=== PATIENT | female | born 2005 | race Caucasian/White ===

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

== ENCOUNTER 2024-01-11 10:33 | Emergency (ER) | payer OTHER, SELFPAY ==
--- NOTE | ~2024-01-11 | CT_ITS ---
EXAMINATION: CT SOFT TISSUE NECK WITH CONTRAST CLINICAL INFORMATION: Trismus. Dental infection. COMPARISON: None available. TECHNIQUE: Following the intravenous administration of 60 mL of Omnipaque 350 intravenous contrast, helical imaging was performed in the axial plane with generation of coronal and sagittal reformatted images. This CT examination was performed using dose optimization techniques as appropriate, variously including the following: *Automated exposure control *Adjustment of mA and/or kV according to patient size (this includes techniques or standardized protocols for targeted exams where dose is matched to indication/reason for exam; i.e. extremities or head) *Use of iterative reconstruction technique DLP: 551 mGy-cm FINDINGS: No abscess or significant inflammation evident. The posterior molars of the mandible and maxilla have been removed. There is air and fluid at the extraction site of these teeth bilaterally. There is no bone destruction. No periarticular abscess. No abnormal enhancement. No significant lymphadenopathy. The submandibular glands and parotid glands are normal. The nasopharynx pharynx and hypopharynx structures are unremarkable. The paranasal sinuses are normally aerated. The orbits and retrobulbar structures and the partially visualized intracranial structures are unremarkable. Lung apices and superior mediastinum are normal. CT/CT soft tissue neck w IV con IMPRESSION: Status post removal of the posterior molars of the mandible and maxilla bilaterally. Air and fluid at the extraction site of these teeth. No abscess or significant inflammation.
[2024-01-11 10:45] VITALS: BP 124/71; PULSE 67; RESP 16; TEMP 37.2; O2SAT 99; BMI 29.5
--- NOTE | 2024-01-11 10:51 | ECG_ITS ---
Test Reason : N/V Blood Pressure : / mmHG Vent. Rate : 057 BPM Atrial Rate : 057 BPM P-R Int : 146 ms QRS Dur : 088 ms QT Int : 410 ms P-R-T Axes : 047 036 044 degrees QTc Int : 399 ms Sinus bradycardia with marked sinus arrhythmia Otherwise normal ECG When compared with ECG of 27-MAR-2021 12:07, Previous ECG has undetermined rhythm, needs review T wave inversion no longer evident in Anterior leads Referred By: Generic ED Physician Electronically Signed By:Kwabena Bowen
[2024-01-11 11:21] LABS: MANUAL DIFF FLAG NO
[2024-01-11 11:29] LABS: Basophils Percent Auto 0.2 % (0-2); Hematocrit 36.4 % (37.0-47.0); Hemoglobin 11.8 g/dl (12.0-16.0); Imm Gran Abs Auto 0.11 X10*3/uL (0.00-0.03); Imm Gran Pct Auto 0.5 % (0.0-0.4); Lymphocytes Absolute Auto 1.5 X10*3/uL (1.2-4.9); Lymphocytes Percent Auto 7.2 % (20-40); Mean Corpuscular HGB Conc 32.4 g/dl (31.0-35.0); Mean Corpuscular Hemoglobin 24.1 pg (27.0-33.0); Mean Corpuscular Volume 74.3 fL (80.0-98.0); Mean Platelet Volume 9.8 fL (9.4-12.3); Monocytes Absolute Auto 0.6 X10*3/uL (0.1-1.2); Monocytes Percent Auto 2.9 % (2-11); Neutrophils Absolute Auto 18.1 x10*3/uL (2.0-8.3); Neutrophils Percent Auto 89.2 % (45-73); Platelet Count 402 X10*3/uL (160-400); Red Cell Distribution Width 17.1 % (11.0-16.0); White Blood Count 20.4 X10*3/uL (4.8-10.8)
[2024-01-11 11:41] LABS: Lactic Acid 1.2 mmol/L (0.5-2.0)
[2024-01-11 11:47] LABS: Alanine Aminotransferase 49 U/L (0-31); Albumin Level 4.6 g/dL (3.5-5.0); Alkaline Phosphatase 90 U/L (39-117); Anion Gap 18 (12-20); Aspartate Amino Transferase 18 U/L (5-31); Bilirubin Total 1.6 mg/dL (0.0-1.0); Blood Urea Nitrogen 7 mg/dL (9-16); Calcium 10.8 mg/dL (8.4-10.2); Carbon Dioxide 22 mmol/L (22-29); Chloride 101 mmol/L (96-108); Creatinine Clr Calc Pharmacy 115.6; Estimated Glomerular Filt Rate > 60; Glucose Random 116 mg/dL (60-115); Lipase 10 U/L (8-78); Potassium 4.5 mmol/L (3.3-5.1); Sodium 136 mmol/L (135-145); Total Protein 8.3 g/dL (6.5-8.0)
[2024-01-11 11:50] LABS: HCG Quantitative < 2 mIU/mL; Troponin-I High Sensitivity < 2.7 ng/L (<3.5-17.0)
--- NOTE | 2024-01-11 11:58 | ED.NAVMDI ---
HPI - Nausea/Vomiting/Diarrhea General Chief complaint: Nausea/Vomiting/Diarrhea Stated complaint: Vomiting Time Seen by Provider: 01/11/24 16:00 Source: patient, family (Mom), RN notes reviewed and old records reviewed Mode of arrival: ambulatory Limitations: no limitations History of Present Illness HPI Narrative: 18-year-old female with no significant past medical history presents to the ED today with mom for evaluation of dental pain, nausea and vomiting x1 week, worsening over the last few days. She admits to having all 4 wisdom teeth removed 1 week ago. She was placed on amoxicillin and finish the entire course yesterday. Four days ago she was seen in [facility] ED for worsening dental/jaw pain. After waiting for hours, she ended up leaving the ED. Reports pain to her lower left jaw, exacerbated with opening her mouth. She called the dental office and they sent her oxycodone for pain. She has been taking this in addition to Tylenol and ibuprofen. Admits that she has been taking these medications on an empty stomach. Endorses nausea and vomiting that began yesterday. Denies fevers, chills, sore throat, chest pain, sob, abdominal pain, diarrhea, dysuria, hematuria. Denies known sick contacts. Additionally reports recent yeast infection secondary to antibiotic use. In triage, patient was noted to report chest pain and shortness of breath however she is denying this to me. She states that she was very anxious while in triage and felt her entire body in pain. Related Data Previous Rx's ?Medication ?Instructions ?Recorded fluconazole 150 mg tablet 150 mg PO Q3D 2 doses #2 tabs 01/11/24 metoclopramide HCl 5 mg tablet 5 mg PO DAILY #7 tabs 01/11/24 (Reglan) morphine 15 mg immediate release 15 mg PO Q8H PRN pain (scale score 01/11/24 tablet 7-10) 2 days #6 tabs ondansetron 4 mg disintegrating 4 mg PO DAILY PRN nausea and 01/11/24 tablet vomiting #14 tabs Allergies Allergy/AdvReac Type Severity Reaction Status Date / Time hazelnut Allergy Anaphylaxis Verified 01/11/24 10:49 Review of Systems Review of Systems: Constitutional: No fever, chills, fatigue, night sweats, weight changes ENT/Mouth: No ear pain, hearing loss, nasal congestion, sinus pain, rhinorrhea, sore throat, +dental/jaw pain Eyes: No eye pain, swelling, redness, vision changes, discharge Cardio: No chest pain, palpitations, DHALIWAL, orthopnea, peripheral edema Pulm: No SOB, cough, sputum, wheezing, dyspnea, hemoptysis GI: No hematemesis, abdominal pain, diarrhea, constipation, hematochezia, melena, +nausea, +vomiting : No irregular bleeding, dysuria, frequency, urgency, hesitancy, hematuria, flank pain, urinary flow changes, urinary incontinence or retention MSK: No back pain, neck pain, joint pain, myalgias Skin: No lesions, rashes Neuro: No weakness, numbness, paresthesias, LOC, dizziness, headache Psych: No anxiety/panic, depression, SI/HI, AH/VH All other systems reviewed and are negative. [facility] Past Medical History Attestation statement: The following information was validated with the patient. Source: old records reviewed and nursing notes reviewed Medical History Asthma Social History Social History Advance Directives: No Advance Directives Information Provided: No Do you have a plan to hurt others: No Plan Physical Exam Vital Signs: Vital Signs: Last Vital Signs Temp 97.8 F 01/11/24 17:45 Pulse 85 01/11/24 17:45 Resp 20 01/11/24 17:45 BP 130/76 01/11/24 17:45 Pulse Ox 98 01/11/24 17:45 O2 Del Method Room Air 01/11/24 17:45 BMI result Body Mass Index 29.5 Vitals WNL Const: General: cooperative, no acute distress and ill appearing Orientation/consciousness: patient oriented x3 Limitations: no limitations HEENT: Other: + swelling noted to jaw bilaterally secondary to recent wisdom tooth extraction. FROM intact to jaw however opening mouth induces pain. no tmj. no trismus. no cervical, submental or submandibular lymphadenopathy. No anterior neck swelling. airway patent. + posterior oropharynx without erythema or edema. Uvula midline. No tonsillar exudates or peritonsillar masses. Controlling secretions and speaking complete sentences. sites of extracton intact, no purulent discharge. no obvious abscess. Head: Yes normal to inspection, Yes No palpable skull fracture present, Yes normocephalic and Yes atraumatic Eyes: General: appearance normal, both eyes and all related structures Conjunctivae: conjunctivae normal Sclerae: sclerae normal Pupils: Equal, round and reactive pupils present Neck: Neck: Yes normal visual inspection, Yes full ROM, Yes no lymphadenopathy and Yes no meningeal signs Resp: Effort & Inspection: normal respiratory effort and able to speak in complete sentences Auscultation: clear to auscultation bilaterally Cardio: Rate: regular rate Rhythm: regular rhythm GI: Other: + abdomen soft, nondistended, nontender to palpation, no rebound tenderness or guarding, normoactive bs x4. Inspection: Yes normal to inspection : General: Yes no CVA tenderness Back/Spine/Pelvis: Other: No midline spinous tenderness or step off deformity. No paraspinal muscle tenderness. Back: no CVA tenderness Skin: General skin exam: no rashes or lesions noted Neuro: General: patient oriented x3 and no meningeal signs Cranial nerves: Yes Equal, round and reactive pupils present Course Course Course Narrative: This is a Rapid Medical Examination (RME) performed by Benita Wong PA-C in triage. Full HPI, ROS, assessment and treatment plan per primary provider in the Main ED. 18 y/o female 7 days s/p wisdom teeth removal presenting w/ N/V/D, abdominal pain, chest pain, SOB, chills and subjective fevers for the last few days. also reports ongoing mouth/jaw pain w/ difficulty opening her jaw. has been on amoxicillin and completed course yesterday. appears pale, uncomfortable. difficulty opening jaw to visualize sites of extraction. Plan: lab workup. imaging per Main ER provider Reevaluation(s) Reevaluation #1: 1545-- CBC with leukocytosis to 20.5 with left shift. Microcytic anemia with H&H of 11.8/ 36.4. Chemistry without acute electrolyte abnormality requiring intervention. Transaminitis. ALT 49. Beta HCG negative. She tested negative for COVID, flu, RSV. CT soft tissue neck pending. > patient receiving 2 L of IV fluids, morphine, Toradol, and Zofran. Plan for re-evaluation. 1720-- CT soft tissue neck with IV contrast showing status post removal of posterior molars of the mandible and maxilla bilaterally, air and fluid at the extraction site of these teeth without abscess or significant inflammation. No phlegmon. > on re-evaluation, patient reports significant improvement in symptoms with IV fluids and pain medication. She is speaking in full complete sentences and tolerating secretions. Tolerating p.o. fluids. Discussed all lab workup and imaging results with the patient and her mother. I do not have suspicion of infection at this time and believe leukocytosis is secondary to multiple episodes of vomiting both yesterday and today. I have suspicion that nausea and vomiting is secondary to taking narcotic pain medication along with ibuprofen on an empty stomach. She tells me that she does have an appointment with her dentist at 8:30 a.m. tomorrow morning. I will be sending patient home with Zofran and morphine for pain control. Discussed strict return precautions. Will also send her home with fluconazole for suspected yeast infection. She is declining pelvic exam at this time. Patient has remained stable throughout ED visit today. Discussed worrisome signs and symptoms and when to return to the ED. All questions answered at this time. Patient is agreeable with disposition and stable for discharge. Medications Administered Discontinued Medications Generic Name Dose Route Start Last Admin Trade Name Freq PRN Reason Stop Dose Admin Sodium Chloride 1,000 mls @ 999 mls/hr 01/11/24 14:30 01/11/24 15:37 Ns IV 01/11/24 15:30 Infused .Q1H1M EMELIA Infusion Sodium Chloride 1,000 mls @ 999 mls/hr 01/11/24 15:45 01/11/24 16:52 Ns IV 01/11/24 16:45 Infused .Q1H1M EMELIA Infusion Iohexol 100 ml 01/11/24 14:42 01/11/24 14:43 Iohexol 350 Mg/Ml 100 Ml Infus..Btl IV 01/11/24 14:43 60 ml ONCE ONE Administration Ketorolac Tromethamine 30 mg 01/11/24 15:31 01/11/24 15:37 Ketorolac Tromethamine 30 Mg/Ml Vial IVPUSH 01/11/24 15:32 30 mg ONCE ONE Administration Morphine Sulfate 4 mg 01/11/24 14:17 01/11/24 14:33 Morphine Sulfate 4 Mg/Ml Cartridge IVPUSH 01/11/24 14:18 4 mg ONCE ONE Administration Protocol Ondansetron HCl 4 mg 01/11/24 14:17 01/11/24 14:33 Ondansetron Hcl 4 Mg/2 Ml Vial IVPUSH 01/11/24 14:18 4 mg ONCE ONE Administration Medical Decision Making Medical Decision Making [facility] [place] Narrative: 18-year-old female with no significant past medical history presents to the ED today with mom for evaluation of dental pain, nausea and vomiting x1 week, worsening over the last few days. Vital signs stable. Patient is ill-appearing however no acute distress. Pale. On exam, swelling noted to jaw bilaterally secondary to recent wisdom tooth extraction. FROM intact to jaw however opening mouth induces pain. no tmj. no trismus. no cervical, submental or submandibular lymphadenopathy. No anterior neck swelling. airway patent. posterior oropharynx without erythema or edema. Uvula midline. No tonsillar exudates or peritonsillar masses. Controlling secretions and speaking complete sentences. sites of extracton intact, no purulent discharge. no obvious abscess. Lungs cta b/l. Airway patent. No stridor. Differential diagnosis includes postprocedural pain, narcotic pain medication side effect, abscess, dental infection, gastroenteritis, gastritis, anxiety. Unlikely mono, herpes, sialadenitis, sialolithiasis, RECONCILEMENT CLERK, retropharyngeal abscess, deep neck infection, osteomyelitis, facial cellulitis/ abscess, lymphoma, Juan's angina. Plan for labs, viral serology, CT, pain control, IV fluids, re-evaluation. Differential Diagnosis Differential Diagnoses: The differential diagnosis associated with the presentation includes as above. Admission/Observation Consideration of admission/observation: Escalation of care including admission/observation considered Admission considered on presentation. Lab Data [facility] [place] Lab Attestation statement: I reviewed the patient's lab results. As above 01/11/24 11:13 01/11/24 11:13 Labs: Lab Results 01/11/24 Range/Units 11:13 WBC 20.4 H (4.8-10.8) X10*3/uL RBC 4.90 (4.20-5.50) X10*6/uL Hgb 11.8 L (12.0-16.0) g/dl Hct 36.4 L (37.0-47.0) % MCV 74.3 L (80.0-98.0) fL MCH 24.1 L (27.0-33.0) pg MCHC 32.4 (31.0-35.0) g/dl RDW 17.1 H (11.0-16.0) % Plt Count 402 H (160-400) X10*3/uL MPV 9.8 (9.4-12.3) fL Immature Gran % (Auto) 0.5 H (0.0-0.4) % Neut % (Auto) 89.2 H (45-73) % Lymph % (Auto) 7.2 L (20-40) % [place] % (Auto) 2.9 (2-11) % Eos % (Auto) 0.0 (0-4) % Baso % (Auto) 0.2 (0-2) % Lymph # (Auto) 1.5 (1.2-4.9) X10*3/uL [place] # (Auto) 0.6 (0.1-1.2) X10*3/uL Eos # (Auto) 0.0 (0.0-0.4) X10*3/uL Baso # (Auto) 0.0 (0.0-0.2) X10*3/uL Abs Immat Gran (auto) 0.11 H (0.00-0.03) X10*3/uL Absolute Neuts (auto) 18.1 H (2.0-8.3) x10*3/uL Absolute Nucleated RBC 0.000 (0.0-0.012) X10*3/uL Nucleated RBC % (auto) 0.0 (0.0-0.2) /100WBC Sodium 136 (135-145) mmol/L Potassium 4.5 (3.3-5.1) mmol/L Chloride 101 (96-108) mmol/L Carbon Dioxide 22 (22-29) mmol/L Anion Gap 18 (12-20) BUN 7 L (9-16) mg/dL Creatinine 0.82 (0.5-1.4) mg/dL Estim Creat Clear Calc 115.6 Estimated GFR > 60 Random Glucose 116 H (60-115) mg/dL Lactic Acid 1.2 (0.5-2.0) mmol/L Calcium 10.8 H D (8.4-10.2) mg/dL Total Bilirubin 1.6 H (0.0-1.0) mg/dL AST 18 (5-31) U/L ALT 49 H (0-31) U/L Alkaline Phosphatase 90 (39-117) U/L Troponin I High Sens < 2.7 (<3.5-17.0) ng/L Total Protein 8.3 H (6.5-8.0) g/dL Albumin 4.6 (3.5-5.0) g/dL Lipase 10 (8-78) U/L Beta HCG, Quant < 2 mIU/mL Influenza Type A (PCR) NEGATIVE (Negative) Influenza Type B (PCR) NEGATIVE (Negative) RSV RNA Qual (PCR) NEGATIVE (Negative) SARS-CoV-2 RNA (RT-PCR) NEGATIVE (Negative) Independent Interpretation I performed an independent interpretation of an: CT Scan Interpretation: CT scan soft tissues neck did not demonstrate abscess, agree with radiologist's interpretation. Radiology Impression Discussion of test interpretation with radiology: I have reviewed the radiologist's reading. Radiologist Impression: EXAMINATION: CT SOFT TISSUE NECK WITH CONTRAST CLINICAL INFORMATION: Trismus. Dental infection. COMPARISON: None available. TECHNIQUE: Following the intravenous administration of 60 mL of Omnipaque 350 intravenous contrast, helical imaging was performed in the axial plane with generation of coronal and sagittal reformatted images. This CT examination was performed using dose optimization techniques as appropriate, variously including the following: *Automated exposure control *Adjustment of mA and/or kV according to patient size (this includes techniques or standardized protocols for targeted exams where dose is matched to indication/reason for exam; i.e. extremities or head) *Use of iterative reconstruction technique DLP: 551 mGy-cm FINDINGS: No abscess or significant inflammation evident. The posterior molars of the mandible and maxilla have been removed. There is air and fluid at the extraction site of these teeth bilaterally. There is no bone destruction. No periarticular abscess. No abnormal enhancement. No significant lymphadenopathy. The submandibular glands and parotid glands are normal. The nasopharynx pharynx and hypopharynx structures are unremarkable. The paranasal sinuses are normally aerated. The orbits and retrobulbar structures and the partially visualized intracranial structures are unremarkable. Lung apices and superior mediastinum are normal. CT/CT soft tissue neck w IV con IMPRESSION: Status post removal of the posterior molars of the mandible and maxilla bilaterally. Air and fluid at the extraction site of these teeth. No abscess or significant inflammation. Independent Historian Clinical information obtained from an independent historian. History obtained from or confirmed by: Parent (mom) Prescription Management I considered prescription management with: Pain Medication and Antibiotic Social Determinants Patient?s care significantly limited by Social Determinants of Health including: Other Social Determinant of Health Critical Care Time Critical Care Time Critical Care Time: Yes Total Critical Care Time: 50 Attestation: Critical care time in the amount of 50 minutes has been provided to the patient in terms of direct patient care, frequent reevaluation, review and interpretation of medical data and results, and management of potentially life-threatening conditions. This is all outside of any medical procedures. Discharge Plan Discharge Clinical Impression: Pain, dental, History of recent dental procedure Patient Disposition: Home, Self-Care Additional Instructions: Your labs today showed increased white count, likely due to vomiting. Labs otherwise reassuring. You tested negative for COVID, flu, RSV. The CT of your neck does not demonstrate abscess. Follow-up with dentist as planned tomorrow. You may take Tylenol and ibuprofen at home for pain. Morphine is a pain medication that has been sent to the pharmacy for you to take for breakthrough pain. MAKE SURE TO TAKE ALL MEDICATIONS WITH FOOD. Zofran is an antinausea medication that has been sent to your pharmacy. If this makes you anxious, you may take Reglan. Fluconazole has been sent to your pharmacy for yeast infection. Take this as prescribed. Follow up with PCP/ manager salt as needed. As discussed, return with new or worsening symptoms. In the case of an emergency call 911. Prescriptions: New ondansetron 4 mg tablet,disintegrating 4 mg PO DAILY PRN (Reason: nausea and vomiting) Qty: 14 0RF fluconazole 150 mg tablet 150 mg PO Q3D Qty: 2 0RF morphine 15 mg tablet 15 mg PO Q8H PRN (Reason: pain (scale score 7-10)) 2 Days Qty: 6 0RF Rx Instructions: Partial Fill upon patient request. metoclopramide HCl [Reglan] 5 mg tablet 5 mg PO DAILY Qty: 7 0RF Referrals: Virginia Ko MD [Primary Care Provider] - Stand Alone Forms: Work/School Release Interventions: ED Discharge Assessment Last Done: 01/11/24 17:45 Discharge Date/Time: 01/11/24 17:47 Print Language: Macedonian
[2024-01-11 12:10] LABS: Influenza A PCR NEGATIVE (Negative); Influenza B PCR NEGATIVE (Negative); Resp Syncy Virus RNA Qual PCR NEGATIVE (Negative); SARS COV2 PCR INHOUSE NEGATIVE (Negative)
[2024-01-11 14:33] VITALS: RESP 16
[2024-01-11] MEDS: ondansetron HCL 4 MG/2 ML VIAL IVPUSH (14:33)
[2024-01-11] MEDS: Morphine Sulfate 4 MG/ML CARTRIDGE IVPUSH (14:33)
[2024-01-11] MEDS: 0.9 % Sodium Chloride 1,000 ML 999 ML IV ×2 (14:34→15:37)
[2024-01-11] MEDS: iohexoL 350 MG/ML 100 ML INFUS..BTL IV (14:43)
[2024-01-11] MEDS: Ketorolac Tromethamine 30 MG/ML VIAL IVPUSH (15:37)
[2024-01-11 15:51] VITALS: TEMP 36.8
[2024-01-11 17:45] VITALS: BP 130/76; PULSE 85; RESP 20; TEMP 36.6; O2SAT 98
== END 2024-01-11 17:47 | disposition home or self-care (01) ==
PROVIDERS: Emergency Provider Emergency Medicine Emergency Medical Services; PCP Pediatrics
DX: K08.89 Other specified disorders of teeth and supporting structures (principal); Z98.890 Other specified postprocedural states
CPT/HCPCS: 0241U; 36415; 70491; 80053; 83605; 83690; 84484; 84702; 85025; 87040; 93005; 96361; 96374; 96375; 99284; 99285; J1885; J2270; J2405; Q9967

== ENCOUNTER → 2024-01-11 10:51 | Outpatient (BNV) | payer OTHER, SELFPAY | PROVIDERS: PCP Pediatrics; Visit Provider Internal Medicine Cardiovascular Disease | DX: I49.9 Cardiac arrhythmia, unspecified (principal) | CPT/HCPCS: 93010 ==